=== PATIENT | male | born 1970 | race Caucasian/White ===

== ENCOUNTER → 2024-07-28 10:07 | Outpatient (CLI) | payer BC, SELFPAY ==
--- NOTE | 2024-07-28 10:11 | DI.RAD.S_ITS ---
PROCEDURE: XR KNEE STANDING BI INDICATIONS: KNEE PAIN TECHNIQUE: AP tunnel and weight-bearing views of the bilateral knee(s) COMPARISON: None. FINDINGS: Bones: No acute fractures or dislocations. Patellar alignment is normal on the sunrise view. No suspicious bony lesions. Moderate to severe bilateral medial tibiofemoral and moderate bilateral lateral tibiofemoral compartment narrowing with associated osteophytosis. Soft tissues: No knee joint effusions. No suspicious soft tissue calcification. IMPRESSION: Bilateral KL grade 3 bicompartmental osteoarthritis without evidence of acute osseous abnormality. Dictated by: Chato Galeano M.D. on 07/28/2024 at 23:49 Approved by: Chato Galeano M.D. on 07/28/2024 at 23:50
--- NOTE | 2024-07-28 10:12 | DI.RAD.S_ITS ---
PROCEDURE: XR KNEE LT 1TO2V INDICATIONS: KNEE PAIN TECHNIQUE: 2 views of the knee were acquired. COMPARISON: None. FINDINGS: Bones: No fractures or dislocations. No suspicious bony lesions. Soft tissues: No joint effusion. No suspicious soft tissue calcifications. IMPRESSION: No acute bony abnormality or significant effusion. Dictated by: Chato Galeano M.D. on 07/28/2024 at 23:48 Approved by: Chato Galeano M.D. on 07/28/2024 at 23:49
== END ==
LOC: RAD 10:09
PROVIDERS: PCP Family Medicine; Referring Provider Family Medicine; Visit Provider Family Medicine
DX: M23.92 Unspecified internal derangement of left knee (principal); M17.0 Bilateral primary osteoarthritis of knee
CPT/HCPCS: 73562; 73565